=== PATIENT | female | born 1970 ===

== ENCOUNTER 2018-01-22 23:29 | Emergency (ER) | payer MEDICAID ==
[2018-01-22 23:29] VITALS: BMI 26.8
[2018-01-22 23:41] VITALS: RESP 17
[2018-01-23] MEDS ORDERED: Sodium Chloride 0.9% 1,000 ML IV STA ×2 (03:26→09:12)
--- NOTE | 2018-01-23 03:46 | ED PDOC ---
History of Present Illness History of Present Illness: 47 year old female presents to ED with complaints of flu-like symptoms x1 day and has a past medical history of hypercholesterolemia. (+) chills, subjective fever, body aches, and mild headache (non-thunderclap). (-) cough or sore throat. PCP: Dmitry Gallo HPI: Influenza Time Seen by Provider: 01/23/18 03:20 Chief Complaint: Flu-like Symptoms Chief Complaint (Provider): Flu-Like Symptoms History Per: Patient Exam Limitations: no limitations Have you had recent travel within the past 21 days to any of: No Onset/Duration Of Symptoms: Days (x1) Symptoms include: headache, bodyaches. denies: sore throat, cough Sick Contacts (Context): None Past Medical History Reviewed: Historical Data, Nursing Documentation, Vital Signs Vital Signs: Last Vital Signs Temp 99.3 F 01/22/18 23:38 Pulse 98 H 01/22/18 23:38 Resp 17 01/22/18 23:38 BP 113/68 01/22/18 23:38 Pulse Ox 97 01/22/18 23:38 - Medical History PMH: Hypercholesterolemia Denies: Chronic Kidney Disease - Surgical History Surgical History: Appendectomy - Family History Family History: States: Unknown Family Hx - Home Medications Home Medications: Ambulatory Orders Medication Instructions Recorded Simvastatin [Zocor] 20 mg PO DAILY 11/19/16 - Allergies Allergies/Adverse Reactions: Allergies Allergy/AdvReac Type Severity Reaction Status Date / Time No Known Allergies Allergy Unverified 01/25/15 14:51 Review of Systems ROS Statement: Except As Marked, All Systems Reviewed And Found Negative Constitutional: Positive for: Fever (subjective), Chills, Other ((+) body aches) ENT: Negative for: Throat Pain Respiratory: Negative for: Cough Neurological: Positive for: Headache Physical Exam - Reviewed Nursing Documentation Reviewed: Yes Vital Signs Reviewed: Yes - Physical Exam Appears: Positive for: Well, Non-toxic, No Acute Distress Skin: Positive for: Normal Color, Warm, Dry Eye Exam: Positive for: EOMI, Normal appearance, PERRL ENT: Positive for: Normal ENT Inspection Neck: Positive for: Normal, Painless ROM, Supple Cardiovascular/Chest: Positive for: Regular Rate, Rhythm. Negative for: Murmur Respiratory: Positive for: Normal Breath Sounds. Negative for: Respiratory Distress Gastrointestinal/Abdominal: Positive for: Normal Exam, Soft. Negative for: Tenderness Extremity: Positive for: Normal ROM. Negative for: Deformity Neurologic/Psych: Positive for: Alert, Oriented. Negative for: Motor/Sensory Deficits Medical Decision Making Medical Decision Makin Initial impression: viral illness v influenza Initial plan: * Labs * Lact acid, plasma * NS IV * Toradol 30mg IVP * Influenza AB * Re-eval 0500 Glucose level: 114 Flu: negative 07 Patient will be signed out to Dr. Stein pending re-evaluation. Scribe Attestation: Documented by Deidra Schumacher acting as a scribe for Ad Cook MD. Scribe Attestation: All medical record entries made by the Scribe were at my direction and personally dictated by me. I have reviewed the chart and agree that the record accurately reflects my personal performance of the history, physical exam, medical decision making, and the department course for this patient. I have also personally directed, reviewed, and agree with the discharge instructions and disposition. - Laboratory Results Result Diagrams: 01/23/18 05:00 01/23/18 05:00 - ECG O2 Sat by Pulse Oximetry: 97 Disposition - Patient ED Disposition Is Patient to be Admitted: Transfer of Care - Disposition Referrals: Dmitry Gallo MD [Primary Care Provider] - Disposition Time: 07:00 Condition: STABLE Forms: [facility] (Telugu) Patient Signed Over To: Dakotah Stein III Handoff Comments: pending re-evaluation
[2018-01-23 06:00] LABS: BASO % 0.5 % (0.0-2.0); EOS # 0.2 K/uL (0.0-0.7); EOS % 2.1 % (0.0-4.0); HEMOGLOBIN 11.8 g/dL (12.0-16.0); LYMPH # 1.1 K/uL (1.0-4.3); LYMPH % 11.8 % (20.0-40.0); MEAN CELL VOLUME 81.4 fl (81.0-99.0); MEAN CORPUSCULAR HEMOGLOBIN 26.8 pg (27.0-31.0); MEAN PLATELET VOLUME 8.7 fl (7.2-11.7); MONO # 0.6 K/uL (0.0-0.8); MONO % 6.9 % (0.0-10.0); NEUT # 7.1 K/uL (1.8-7.0); NEUT % 78.7 % (50.0-75.0); RBC 4.39 Mil/uL (3.80-5.20); RED CELL DISTRIBUTION WIDTH 14.8 % (11.5-14.5)
[2018-01-23 06:15] LABS: BLOOD UREA NITROGEN 14 mg/dl (7-17); CALCIUM 9.1 mg/dL (8.4-10.2); GFR AFRICAN-AMERICAN > 60; GFR NON-AFRICAN AMERICAN > 60
--- NOTE | 2018-01-23 07:11 | ED PDOC ---
- Laboratory Results Result Diagrams: 01/23/18 05:00 01/23/18 05:00 - ECG O2 Sat by Pulse Oximetry: 97 Medical Decision Making Medical Decision Makin:00 -Patient endorsed to me by Dr. Cook, pending fluids and reevaluation. 11am improving, finally gave urine sample UA reveals +WBC and leuks, nitrate re-eval 2p remains w body aches, mild headache states son recently had flu denies neck pain or photophobia neck remains supple, nontender on movement Rx tamiflu given symptoms ongoing since last night, also cover w cipro for UTI results explained in maltese via Mindy Cruz Disposition - Clinical Impression Clinical Impression: UTI (urinary tract infection), Flu-like symptoms - Disposition Referrals: Dmitry Gallo MD [Primary Care Provider] - Condition: STABLE Additional Instructions: Return to ER for any concern. Take medication as directed. Prescriptions: Ciprofloxacin [Cipro] 500 mg PO BID #14 tab Ibuprofen [Motrin Tab] 600 mg PO Q6 PRN #15 tab PRN Reason: Pain, Moderate (4-7) Oseltamivir [Tamiflu] 75 mg PO BID #10 cap Instructions: Urinary Tract Infections in Adults, Flu, Adult (DC) Forms: [employer] (Lithuanian) Print Language: UZBEK
--- NOTE | 2018-01-23 09:45 | RAD ---
HISTORY: bodyaches, chills, fever COMPARISON: No prior. FINDINGS: LUNGS: No active pulmonary disease. PLEURA: No significant pleural effusion identified, no pneumothorax apparent. CARDIOVASCULAR: Normal. OSSEOUS STRUCTURES: No significant abnormalities. VISUALIZED UPPER ABDOMEN: Normal. OTHER FINDINGS: None. IMPRESSION: No active disease.
[2018-01-23 11:40] LABS: SQUAMOUS EPITHIAL 1 /hpf (0-5); URINE BACTERIA RARE (<OCC); URINE BILIRUBIN NEGATIVE (NEGATIVE); URINE BLOOD MODERATE (NEGATIVE); URINE CLARITY SLIGHTY-CLOUDY (Clear); URINE COLOR YELLOW (YELLOW); URINE GLUCOSE (UA) NEG (Normal); URINE LEUKOCYTE ESTERASE LARGE Leu/uL (Negative); URINE PROTEIN NEGATIVE (NEGATIVE); URINE UROBILINOGEN 0.2-1.0 mg/dL (0.2-1.0)
[2018-01-23] MEDS ORDERED: cefTRIAXone (Rocephin) 1 gm Inj ONE (11:55)
--- NOTE | 2018-01-23 12:06 | CARD ---
APPROVED REPORT EKG Measurement Heart [id number] <Conclusion> Sinus bradycardia Otherwise normal ECG
[2018-01-23 15:41] VITALS: BP 140/80; PULSE 78; TEMP 101.6; O2SAT 98
== END 2018-01-23 15:13 | disposition home or self-care (01) ==
LOC: H.ER 23:29
DX: N39.0 Urinary tract infection, site not specified (principal); J11.1 Influenza due to unidentified influenza virus with other respiratory manifestations; E78.00 Pure hypercholesterolemia, unspecified
CPT/HCPCS: 71045; 80048; 81003; 81025; 83605; 85025; 87086; 87181; 87804; 93005; 96361; 96365; 96375; 99283; J0696; J1885; J7040

== ENCOUNTER 2018-11-24 08:08 | Emergency (ER) | payer MEDICAID ==
[2018-11-24 08:10] VITALS: BMI 29.5
[2018-11-24 08:12] VITALS: RESP 18
--- NOTE | 2018-11-24 09:11 | ED PDOC ---
HPI: CCC, URI, Sore Throat History Per: Patient (Randy Chinese: [id number]) History/Exam Limitations: no limitations Additional Complaint(s): Pt is a 47 y/o female with no pmhx presents to ED with complaints of subjective fever/chills, generalized malaise, sore throat, painful swallowing, and headache for the past 3 days. She states that she has been felling overall very tired and ill for the past week and her symptoms have been gradually worsening. This morning she woke up with a headache 6/10 (now 9/10) in intensity which she describes as throbbing, localized at temples with radiation posteriorly down the her neck. She has not taken any medication other than vicks vapor rub. She states her cough is dry, mild, with no associated cp or sob. On ROS, she admits to mild pain with urination and nausea this morning. Denies any sick contacts or recent travel. PMD: Dr. Delfina Gallo No PMHX, No SHx, No medications, No NKDA, Denies smoking or illicit drug use <Rosa Reza - Last Filed: 11/24/18 11:36> <Maxine Condon - Last Filed: 11/24/18 12:31> Time Seen by Provider: 11/24/18 08:32 Chief Complaint (Nursing): Flu-like Symptoms Supervising Attending Note - Supervising Attending Note The Documented history was done by the: Physician Instructor Of Spanish The documented physical exam was done by the: Physician Instructor Of Spanish The documented procedures were done by the: Physician Instructor Of Spanish - Attestation: I have personally seen and examined this patient.: Yes I have fully participated in the care of the patient.: Yes <Maxine Condon - Last Filed: 11/24/18 12:31> Past Medical History Vital Signs: Last Vital Signs Temp 100.2 F H 11/24/18 08:10 Pulse 84 11/24/18 08:10 Resp 18 11/24/18 08:10 BP 104/66 11/24/18 08:10 Pulse Ox 99 11/24/18 08:10 - Medical History PMH: Hypercholesterolemia Denies: Chronic Kidney Disease - Surgical History Surgical History: Appendectomy - Family History Family History: States: Unknown Family Hx <Juaquin,Adiam - Last Filed: 11/24/18 11:36> Vital Signs: Last Vital Signs Temp 100.2 F H 11/24/18 08:10 Pulse 84 11/24/18 08:10 Resp 18 11/24/18 08:10 BP 104/66 11/24/18 08:10 Pulse Ox 99 11/24/18 10:37 <Maxine Condon Y - Last Filed: 11/24/18 12:31> - Home Medications Home Medications: Ambulatory Orders Medication Instructions Recorded Simvastatin [Zocor] 20 mg PO DAILY 11/19/16 Ciprofloxacin [Cipro] 500 mg PO BID #14 tab 01/23/18 Ibuprofen [Motrin Tab] 600 mg PO Q6 PRN #15 tab 01/23/18 Oseltamivir Cap [Tamiflu] 75 mg PO BID #10 cap 01/23/18 Amoxicillin/Clavulanate [Augmentin 1 tab PO BID 10 Days #20 tab 11/24/18 500 MG-125 MG] - Allergies Allergies/Adverse Reactions: Allergies Allergy/AdvReac Type Severity Reaction Status Date / Time No Known Allergies Allergy Verified 11/24/18 08:33 Review of Systems Constitutional: Positive for: Fever, Chills ENT: Positive for: Nose Congestion, Throat Pain. Negative for: Ear Pain Cardiovascular: Negative for: Chest Pain, Palpitations Respiratory: Negative for: Cough, Shortness of Breath, Hemoptysis Gastrointestinal: Positive for: Nausea. Negative for: Vomiting, Diarrhea Genitourinary Female: Positive for: Dysuria. Negative for: Frequency Musculoskeletal: Positive for: Neck Pain, Shoulder Pain Skin: Negative for: Rash Neurological: Negative for: Weakness <Rosa Reza - Last Filed: 11/24/18 11:36> Physical Exam - Physical Exam Appears: Positive for: Uncomfortable (Female lying in bed appears uncomfortable but in no acute distress ) Head Exam: Positive for: ATRAUMATIC Skin: Positive for: Normal Color. Negative for: Diaphoresis Eye Exam: Positive for: Normal appearance, EOMI, PERRL. Negative for: Conjunctival injection ENT: Positive for: TM Is/Are (normal bilaterally ), Nasal Congestion, Pharyngeal Erythema, Tonsillar Exudate, Tonsillar Swelling Neck: Positive for: Normal, Painless ROM, Supple (no nuchal rigidity) Cardiovascular/Chest: Positive for: Regular Rate, Rhythm, Chest Non Tender. Negative for: Murmur Respiratory: Positive for: Normal Breath Sounds. Negative for: Accessory Muscle Use, Crackles, Wheezing Gastrointestinal/Abdominal: Positive for: Normal Exam, Bowel Sounds, Soft. Negative for: Tenderness Extremity: Negative for: Pedal Edema Neurological/Psych: Positive for: Awake, Alert, Normal Tone <Rosa Reza - Last Filed: 11/24/18 11:36> - ECG O2 Sat by Pulse Oximetry: 99 <Rosa Reza - Last Filed: 11/24/18 11:36> Medical Decision Making Medical Decision Making: Pt is a 47 y/o female with no pmhx presents to ED with complaints of subjective fever/chills, generalized malaise, sore throat, painful swallowing, and headache for the past 3 days. Rapid Strep Influenza Toradol 30mg IM Dexamethasone 10mg po 1027 Pt re-assessed, seen sleeping comfortably. States headache improved. Rapid Strep + Influenza - Will given Augmentin 875mg po x1 <Rosa Reza - Last Filed: 11/24/18 11:36> Medical Decision Making: Patient with complaints of fever, chills, sore throat and headache x 3 days. patient seen and evaluated alongside resident. Serology reports reviewed, patient positive for strep pharyngitis; patient to be discharged home with antibiotics and instructed to follow up with PMD in 2-3 days. <Maxine Condon Y - Last Filed: 11/24/18 12:31> Disposition - Patient ED Disposition Is Patient to be Admitted: No Counseled Patient/Family Regarding: Studies Performed, Diagnosis, Need For Followup - Disposition Disposition Time: 11:36 <Rosa Reza - Last Filed: 11/24/18 11:36> <Maxine Condon Y - Last Filed: 11/24/18 12:31> - Clinical Impression Clinical Impression: Strep pharyngitis - Disposition Referrals: Dmitry Gallo MD [Family Provider] - Condition: IMPROVED Prescriptions: Amoxicillin/Clavulanate [Augmentin 500 MG-125 MG] 1 tab PO BID 10 Days #20 tab Instructions: Strep Throat (DC) Forms: [employer] ([place]), [facility] ED School/Work Excuse
[2018-11-24] MEDS ORDERED: Amoxicillin-Clav 875-125 mg Tab PO STA (10:26)
[2018-11-24] MEDS ORDERED: Amoxicillin-Clav 875-125 mg Tab PO ONE (10:43)
[2018-11-24 10:46] LABS: SQUAMOUS EPITHIAL 4 /hpf (0-5); URINE AMORPHOUS SEDIMENT RARE /ul (<OCC); URINE BILIRUBIN NEGATIVE (NEGATIVE); URINE BLOOD MODERATE (NEGATIVE); URINE CLARITY CLOUDY (Clear); URINE COLOR AMBER (YELLOW); URINE GLUCOSE (UA) NEG (NEGATIVE); URINE LEUKOCYTE ESTERASE NEG Leu/uL (Negative); URINE PROTEIN 30 mg/dL (NEGATIVE); URINE UROBILINOGEN 0.2-1.0 mg/dL (0.2-1.0)
[2018-11-24 11:41] VITALS: BP 100/59; PULSE 76; TEMP 98.6; O2SAT 97
== END 2018-11-24 12:07 | disposition home or self-care (01) ==
LOC: H.ER 08:08
DX: J02.0 Streptococcal pharyngitis (principal); E78.00 Pure hypercholesterolemia, unspecified
CPT/HCPCS: 81003; 81025; 87430; 87804; 96372; 99284; J1885; J8540